=== PATIENT | male | born 1975 | race Caucasian/White ===

== ENCOUNTER 2023-12-26 12:55 | Outpatient (AMB) | payer OTHER, SELFPAY ==
--- NOTE | 2023-12-26 12:54 | A.OFFVIS_ITS ---
Vital Signs 12/26/23 13:00 Height 5 ft 11 in Weight 186 lb 15.232 oz BMI 26.1 BP 152/74 H Blood Pressure Location Rt brachial Position Sitting Pulse 96 Pulse Source Pulse Oximeter Pulse Oximetry (%) 97 Oxygen Delivery Method Room Air Intake Visit Reasons: Joint Pain/+RF Intake Note: New patient, externally referred by Kaia, presents to office today for joint pain. Pain in multiple joints, disc problems. Has seen Kaia and Dr Hunter Pain began approx since he was 23 years old Injections with [employer] Required: No Accompanied by: Self / Same As Patient Allergies ibuprofen Adverse Reaction (Unknown, Verified 12/26/23 13:06) Nausea and Vomiting METAL Adverse Reaction (Mild, Uncoded 12/26/23 13:06) RASH Medication List - Last Reconciled 12/26/23 by Donya Tenorio MD acetaminophen ER 650 mg PO TID ammonium lactate 12% 1 appl topical BID aripiprazole 10 mg PO DAILY clindamycin phosphate 1% 1 appl topical BID gabapentin 600 mg PO TID hydroxyzine HCl 25 mg PO TID mirtazapine 7.5 mg PO BEDTIME HPI Comments Details: This is a 48-year-old male who presents for evaluation of a positive rheumatoid factor in the setting of diffuse pain. Patient states that he has had diffuse joint pain for many years. He has seen interest multiple times over the years and received multiple injections in his knees and his spine. He is unaware of any family history of an autoimmune rheumatic disease. States that he has diffuse pain everywhere. He was evaluated by Dr. Louis campos few months ago and deemed not to have an autoimmune rheumatic disease. Recent labs showed a positive rheumatoid factor. [facility] Medical History Tobacco use History of heroin use Chronic cervical pain Chronic bilateral thoracic back pain Chronic bilateral low back pain without sciatica Heartburn History of hepatitis C Asthma Lumbar disc herniation GERD (gastroesophageal reflux disease) CTS (carpal tunnel syndrome) MRSA (methicillin resistant staph aureus) culture positive Bilateral hand pain Chronic pain of both knees Acute cervical radiculopathy Pure hypercholesterolemia, unspecified Surgical History History of surgery History of carpal tunnel release Family History Sister Arthritis Social History Alcohol intake: current Alcohol intake frequency: does not drink Patient Tobacco Use Status: Current everyday Tobacco user Review of Systems Const Reports fatigue and Reports weakness Eyes Reports dry eyes, Reports itchy eyes, Reports loss of vision and Reports eye pain ENT Reports dysphagia, Reports dizziness and Reports tinnitus Card Reports chest pain and Reports irregular heart rhythm GI Reports dysphagia Neuro Reports dizziness, Reports loss of vision and Reports weakness Psych Reports anxiety and Reports depression Endo Reports fatigue Aller/Immun Reports itchy eyes Physical Exam Vital Signs: Last Vital Signs Pulse 96 12/26/23 13:00 BP 152/74 H 12/26/23 13:00 Pulse Ox 97 12/26/23 13:00 Oxygen Delivery Method Room Air 12/26/23 13:00 BMI result Body Mass Index 26.1 Const General: cooperative, healthy appearing and comfortable Nutritional Appearance: overweight Orientation/consciousness: patient oriented x3 Limitations: no limitations HEENT Head: Yes normocephalic and Yes atraumatic Mouth: moist mucous membranes Resp Effort & Inspection: normal respiratory effort and able to speak in complete sentences Auscultation: clear to auscultation bilaterally Neuro General: patient oriented x3 Extrem Other: Osteoarthritic changes of both hands with prominent Heberden's and Omar's nodes with no active synovitis Multiple myofascial tender points Normal nailfold capillaroscopy Osteoarthritic changes of feet Results Reviewed Results Reviewed: Labs 2023 RF 220 <15 MULU/CCP negative ESR and CRP normal Assessment & Plan Assessment & Plan (1) Rheumatoid factor positive: Code(s): R76.8 - Other specified abnormal immunological findings in serum Category: Medical Plan: This is a 48-year-old male who presents for evaluation of a positive rheumatoid factor in the setting of diffuse pain. Upon evaluation I do not see any evidence of an autoimmune rheumatic disease. His positive rheumatoid factor may be related to his history of hepatitis-C. Looks like patient has a negative hepatitis-C viral load last year. He does not recall getting treatment for hepatitis-C. He was told that he had cleared the infection. Follow-up with PCP Plan I spent 30 minutes reviewing patient's chart, evaluating patient, ordering diagnostic workup, counseling patient and documenting in the chart Coding Level of Care Code New Pt Level 3 (13512) Diagnoses Rheumatoid factor positive R76.8
[2023-12-26 13:00] VITALS: BP 152/74; PULSE 96; O2SAT 97; BMI 26.1
== END 2023-12-26 13:32 | disposition home or self-care (01) ==
PROVIDERS: PCP Internal Medicine; Referring Provider Internal Medicine; Visit Provider Student in an Organized Health Care Education/Training Program
DX: R76.8 Other specified abnormal immunological findings in serum (principal)
CPT/HCPCS: 99203

== ENCOUNTER → 2023-12-26 12:55 | Outpatient (BNVA) | payer OTHER, SELFPAY | PROVIDERS: PCP Internal Medicine; Referring Provider Internal Medicine; Visit Provider Student in an Organized Health Care Education/Training Program | DX: R76.8 Other specified abnormal immunological findings in serum (principal) | CPT/HCPCS: 99202 ==